=== PATIENT | female | born 1985 | race African-American/Black ===

== ENCOUNTER 2018-08-31 20:29 | Emergency (ER) | payer BC, OTHER ==
[~2018-08-31] VITALS: Ht 157.5 cm; Wt 54.4 kg
[~2018-08-31 20:29] MED LIST: BUTA1CAP29 PO; PROM25TA10 PO
[2018-08-31 21:03] LABS: CALCIUM 9.4 mg/dL (8.5-10.1); CREATININE 0.7 mg/dL (0.6-1.0); GFR 117.3; POTASSIUM 3.2 mmol/L (3.5-5.1)
[2018-08-31 21:05] LABS: BASO % 1 % (0-3); EOS # 0.1 x10^3/uL (0.0-0.7); EOS % 2 % (0-3); HEMATOCRIT 33.2 % (36.0-47.0); HEMOGLOBIN 10.9 g/dL (12.0-15.5); LYMPH # 1.7 x10^3/uL (1.0-4.8); LYMPH % 44 % (24-48); MEAN CORPUSCULAR HEMOGLOBIN 28 pg (25-35); MEAN CORPUSCULAR HGB CONC 33 g/dL (31-37); MEAN CORPUSCULAR VOLUME 85 fL (79-100); MONO # 0.5 x10^3/uL (0.0-1.1); MONO % 13 % (0-9); NEUT # 1.6 x10^3uL (1.8-7.7); NEUT % 41 % (31-73); PLATELET COUNT 396 x10^3/uL (140-400); RED CELL DISTRIBUTION WIDTH 16.3 % (11.5-14.5)
[2018-08-31 21:15] VITALS: BP 128/57
--- NOTE | 2018-08-31 21:25 | PHYS DOC ---
Past Medical History Past Medical History: Other Additional Past Medical Histor: HEADACHES Past Surgical History: Additional Past Surgical Histo: X 3 Alcohol Use: Occasionally Drug Use: None Adult General Chief Complaint Chief Complaint: WEAKNESS/GENERALIZED HPI HPI Patient is a 33 year old female with no past medical history presents to the ED complaining of fatigue times one day. Patient states yesterday she worked a long shift at [employer]. 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 States that she slept all day today. States she came to the ED today for the fatigue. Denies any other symptoms. States she's been eating and drinking per her normal. Denies bleeding, fever, chest pain, shortness of breath, syncope, nausea/vomiting, history of anemia, headache, dysuria or abdominal pain. Patient states that she cannot be because she had her tubes tied. Review of Systems Review of Systems Constitutional: Denies fever or chills [] Eyes: Denies change in visual acuity, redness, or eye pain [] HENT: Denies nasal congestion or sore throat [] Respiratory: Denies cough or shortness of breath [] Cardiovascular: No additional information not addressed in HPI [] GI: Denies abdominal pain, nausea, vomiting, bloody stools or diarrhea [] : Denies dysuria or hematuria [] Musculoskeletal: Denies back pain or joint pain [] Integument: Denies rash or skin lesions [] Neurologic: Denies headache, focal weakness or sensory changes [] All other systems were reviewed and found to be within normal limits, except as documented in this note. Current Medications Current Medications Current Medications Medications (Trade) Dose Ordered Sig/Kaylyn Start Time Stop Time Status Last Admin Dose Admin Potassium Chloride (Klor-Con) 40 meq 1X ONCE 08/31/18 22:00 08/31/18 22:00 DC 08/31/18 21:36 40 MEQ Allergies Allergies Allergies Coded Allergies Type Severity Reaction Last Updated Verified No Known Drug Allergies 12/11/14 No Physical Exam Physical Exam Constitutional: Well developed, well nourished, no acute distress, non-toxic appearance. [] HENT: Normocephalic, atraumatic. Eyes: PERRLA, EOMI, conjunctiva normal, no discharge. [] Neck: Normal range of motion, no tenderness, supple, no stridor. [] Cardiovascular:Heart rate regular rhythm, no murmur [] Lungs & Thorax: Bilateral breath sounds clear to auscultation [] Abdomen: Bowel sounds normal, soft, no tenderness, no masses, no pulsatile masses. [] Skin: Warm, dry, no erythema, no rash. [] Back: No tenderness, no CVA tenderness. [] Extremities: No tenderness, no cyanosis, no clubbing, ROM intact, no edema. [] Neurologic: Alert and oriented X 3, normal motor function, normal sensory function, no focal deficits noted. [] Psychologic: Affect normal, judgement normal, mood normal. [] Current Patient Data Vital Signs Vital Signs Date Time Temp Pulse Resp B/P (MAP) Pulse Ox O2 Delivery O2 Flow Rate FiO2 08/31/18 20:33 98.7 76 16 159/90 (113) 99 Room Air 98.7 Lab Values Laboratory Tests Test 08/31/18 20:47 White Blood Count 4.0 x10^3/uL (4.0-11.0) Red Blood Count 3.90 x10^6/uL (3.50-5.40) Hemoglobin 10.9 g/dL (12.0-15.5) L Hematocrit 33.2 % (36.0-47.0) L Mean Corpuscular Volume 85 fL (79-100) Mean Corpuscular Hemoglobin 28 pg (25-35) Mean Corpuscular Hemoglobin Concent 33 g/dL (31-37) Red Cell Distribution Width 16.3 % (11.5-14.5) H Platelet Count 396 x10^3/uL (140-400) Neutrophils (%) (Auto) 41 % (31-73) Lymphocytes (%) (Auto) 44 % (24-48) Monocytes (%) (Auto) 13 % (0-9) H Eosinophils (%) (Auto) 2 % (0-3) Basophils (%) (Auto) 1 % (0-3) Neutrophils # (Auto) 1.6 x10^3uL (1.8-7.7) L Lymphocytes # (Auto) 1.7 x10^3/uL (1.0-4.8) Monocytes # (Auto) 0.5 x10^3/uL (0.0-1.1) Eosinophils # (Auto) 0.1 x10^3/uL (0.0-0.7) Basophils # (Auto) 0.0 x10^3/uL (0.0-0.2) Sodium Level 142 mmol/L (136-145) Potassium Level 3.2 mmol/L (3.5-5.1) L Chloride Level 104 mmol/L (98-107) Carbon Dioxide Level 28 mmol/L (21-32) Anion Gap 10 (6-14) Blood Urea Nitrogen 11 mg/dL (7-20) Creatinine 0.7 mg/dL (0.6-1.0) Estimated GFR (Cockcroft-Gault) 117.3 Glucose Level 101 mg/dL (70-99) H Calcium Level 9.4 mg/dL (8.5-10.1) Laboratory Tests 08/31/18 20:47 Laboratory Tests 08/31/18 20:47 EKG EKG [] Radiology/Procedures Radiology/Procedures [] Course & Med Decision Making Course & Med Decision Making Pertinent Labs and Imaging studies reviewed. (See chart for details) []Discussed lab findings with patient. Patients potassium replaced. Patient states she is feeling better in the ED. Vitals stable, NAD. Patient's hemoglobin is 10.9. Patient has no sources of bleeding, seems to be chronic in nature. Discussed symptomatic treatment, dietary changes and hydration. Discussed follow-up for reevaluation in one week with PCP. Provided contact information/education. Discussed reasons to return to the ED. Patient understands and agrees with plan. Dragon Disclaimer Dragon Disclaimer This electronic medical record was generated, in whole or in part, using a voice recognition dictation system. Departure Departure Impression: Primary Impression: Hypokalemia Additional Impression: Fatigue Disposition: 01 HOME, SELF-CARE Condition: IMPROVED Referrals: NO PCP (PCP) FANTASMA VALLADARES MD Patient Instructions: Fatigue, Hypokalemia Problem Qualifiers BELEM PRATER Aug 31, 2018 21:25
[2018-08-31] MEDS ORDERED: POTASSIUM CHLORIDE 20 MEQ TABLET.ER. PO ONE (22:00)
== END 2018-08-31 21:40 | disposition home or self-care (01) ==
LOC: ER 20:29
DX: E87.6 Hypokalemia (principal); R53.83 Other fatigue; Z98.890 Other specified postprocedural states
CPT/HCPCS: 36415; 80048; 85025; 99284